=== PATIENT | female | born 1955 | race Caucasian/White ===

== ENCOUNTER 2019-11-10 22:34 | Inpatient (IN) | payer BC ==
[2019-11-11] MEDS ORDERED: IPRATROPIUM-ALBUTEROL 3 ML NEB INHALATION STA (00:02)
[2019-11-11] MEDS ORDERED: AZITHROMYCIN 500 MG in SODIUM CHLORIDE 0.9% 250 ML IVPB STA (00:07)
[2019-11-11] MEDS ORDERED: PNEUMONIA PROTOCOL UTILIZED 1 EACH MISC PO PRN (00:07)
--- NOTE | 2019-11-11 00:07 | ED ---
SOB HPI - General Chief Complaint: Shortness of Breath Stated Complaint: Pneumonia Time Seen by Provider: 11/10/19 22:34 Source: patient, RN/MD, EMS, RN notes reviewed Mode of arrival: EMS Limitations: no limitations - History of Present Illness Initial Comments: This is a 64-year-old female with no prior history of COPD asthma or smoking who presented to [facility] with complaints of shortness of breath cough upper respiratory symptoms she additionally has nausea vomiting some diarrhea. She also has sore throat. She was found have influenza type A and on further evaluation found have a right lower lobe and right middle lobe infiltrate consistent with pneumonia. She was noted to be hypoxemic was placed on oxygen he was sent here for further evaluation and inpatient treatment. She did develop epistaxis the right naris and was treated with a Rhino Rocket. Patient complains of pain upon arrival and has had no further bleeding. She did request the be removed. No other complaints or modifying factors she was found have a heart rate 112 a diminished blood pressure and scattered wheezing with a sodium 128 and lab work. Initial treatment was started at [facility] MD Complaint: shortness of breath, cough - Related Data Home Medications Medication Instructions Recorded Confirmed Calcium Polycarbophil [Fibercon] 1,250 mg PO DAILY PRN 11/10/19 11/10/19 Dulaglutide [Trulicity] 1.5 mg SQ MO 11/10/19 11/10/19 Glimepiride [Amaryl] 1 mg PO DAILY 11/10/19 11/10/19 Latanoprost [Xalatan 0.005%] 1 drop BOTH EYES HS 11/10/19 11/10/19 Levothyroxine Sodium [Synthroid] 50 mcg PO DAILY 11/10/19 11/10/19 Meloxicam [Mobic] 15 mg PO DAILY 11/10/19 11/10/19 metFORMIN HCL [Glucophage] 1,000 mg PO BID 11/10/19 11/10/19 Allergies Allergy/AdvReac Type Severity Reaction Status Date / Time fluoxetine [From Prozac] Allergy Anaphylaxis Verified 11/10/19 23:41 aspirin AdvReac Severe NOSE BLEEDS Verified 11/10/19 23:41 cortisone AdvReac COULDN'T Verified 11/10/19 23:41 WALK Ippuvqo-Nyd-Rsm Reductase AdvReac PANCREATITIS Verified 01/04/20 23:41 Inhibitor SYMPTOMS Review of Systems ROS Statement: Those systems with pertinent positive or pertinent negative responses have been documented in the HPI. ROS Other: All systems not noted in ROS Statement are negative. Past Medical History Past Medical History: Diabetes Mellitus, Fibromyalgia, Hyperlipidemia, Hypertension, Thyroid Disorder Additional Past Medical History / Comment(s): raynauds, vertigo History of Any Multi-Drug Resistant Organisms: None Reported Past Surgical History: Cholecystectomy Past Psychological History: No Psychological Hx Reported Smoking Status: Never smoker Past Alcohol Use History: Occasional Past Drug Use History: None Reported General Exam - General Exam Comments Initial Comments: This is a well-developed well-nourished awake alert oriented 3 female Limitations: no limitations General appearance: alert, anxious Head exam: Present: atraumatic, normocephalic, normal inspection Eye exam: Present: normal appearance, PERRL, EOMI. Absent: scleral icterus, conjunctival injection, periorbital swelling ENT exam: Present: normal exam, mucous membranes moist Neck exam: Present: normal inspection, full ROM, other (No stridor JVD or bruits). Absent: tenderness, meningismus, lymphadenopathy Respiratory exam: Present: wheezes (Scattered wheezes), decreased breath sounds. Absent: respiratory distress, rales, rhonchi, stridor Cardiovascular Exam: Present: normal rhythm, tachycardia, normal heart sounds. Absent: systolic murmur, diastolic murmur, rubs, gallop, clicks GI/Abdominal exam: Present: soft, normal bowel sounds. Absent: distended, tenderness, guarding, rebound, rigid Extremities exam: Present: normal inspection, full ROM, normal capillary refill. Absent: tenderness, pedal edema, joint swelling, calf tenderness Back exam: Present: normal inspection Neurological exam: Present: alert, oriented X3, CN II-XII intact Psychiatric exam: Present: normal affect, normal mood Skin exam: Present: warm, dry, intact, normal color. Absent: rash Course Vital Signs 11/10/19 11/10/19 11/10/19 22:46 22:54 23:30 Temperature 99.0 F Pulse Rate 106 H 100 Respiratory 20 20 Rate Blood Pressure 141/64 130/56 O2 Sat by Pulse 91 L 92 L Oximetry 11/11/19 00:00 Temperature Pulse Rate Respiratory Rate Blood Pressure O2 Sat by Pulse 87 L Oximetry Medical Decision Making - Medical Decision Making I did review the materials from the presenting hospital. I did discuss the case with Val Valle who is covering Dr. Pearson the patient be admitted for inpatient treatment of influenza and pneumonia. At this time her pulse ox was in the low 90s on room air so thus far nasal oxygen will be withheld as this likely precipitated the epistaxis. She is aware that she may need it she'll continue with IV fluids IV antibiotics and treatment for influenza Disposition Clinical Impression: Influenza A, Pneumonia, Dehydration, Febrile illness, acute, Acute bronchospasm Disposition: ADMITTED IP TO THIS HOSP Condition: Fair Referrals: Nonstaff,Physician [Primary Care Provider] - 1-2 days
[2019-11-11] MEDS ORDERED: IPRATROPIUM-ALBUTEROL 3 ML NEB INHALATION PRN (00:34)
[2019-11-11] MEDS ORDERED: IPRATROPIUM-ALBUTEROL 3 ML NEB INHALATION SCH (04:00)
[2019-11-11] MEDS ORDERED: methylPREDNISolone SOD SUCCI 125 MG/2 ML VIAL IV SCH (06:00)
[2019-11-11 07:14] LABS: Glucose,Whole Blood 202 mg/dL (75-99)
[2019-11-11] MEDS: metFORMIN 500 MG TAB PO SCH ×2 (07:36→21:12)
[2019-11-11] MEDS: LEVOTHYROXINE 50 MCG TAB PO SCH (07:37)
[2019-11-11] MEDS: INSULIN ASPART (NovoLOG) 100 UNIT/ML VIAL SQ SCH ×4 (07:37→21:12)
[2019-11-11] MEDS: GLIMEPIRIDE 1 MG TAB PO SCH (07:37)
[2019-11-11] MEDS ORDERED: MELOXICAM 7.5 MG TAB PO SCH (09:00)
[2019-11-11] MEDS: IPRATROPIUM-ALBUTEROL 3 ML NEB INHALATION SCH ×4 (09:46→19:21)
[2019-11-11 11:32] LABS: Glucose,Whole Blood 298 mg/dL (75-99)
--- NOTE | 2019-11-11 12:05 | CONS ---
CONSULTATION DATE OF CONSULTATION: November 11, 2019 This is a 64-year-old female with no prior history of any lung issues. The patient presented to [facility] with complaints of shortness of breath, cough, chest tightness, wheezing, as well as a fever, chills and muscle aches and joint aches. She apparently was found to be positive for influenza A and on chest x-ray apparently was positive for right lower lobe and right middle lobe pneumonia. Unfortunately, that chest x-ray is not available. A chest x-ray will be ordered on this patient. She is feeling a bit better today. She states her chest feels a bit looser and she is not feeling so tight and short of breath. She is coughing. Producing some phlegm. Today, there is no fever or chills. The patient was seen in our ER by Dr. Daily and admitted to the hospital with pneumonia involving the right middle lobe, right lower lobe, as well as influenza A infection. She sees a nurse practitioner in [place]. Her current home medications include FiberCon, Trulicity, Amaryl, Xalatan eye drops, Synthroid, Mobic, and Glucophage. ALLERGIES: INCLUDE PROZAC, ASPIRIN, CORTISONE, AND STATINS. MEDICAL HISTORY: Diabetes mellitus, fibromyalgia, hyperlipidemia, hypothyroidism. She also suffers from Raynaud disease and vertigo. SURGICAL HISTORY: Only includes a cholecystectomy. SOCIAL HISTORY: Significant that she is a lifelong nonsmoker. She drinks occasionally. No illicit drug use. FAMILY HISTORY: Noncontributory. Mother and father were healthy. REVIEW OF SYSTEMS: CONSTITUTIONAL: Weakness, fatigue, muscle aches, joint aches. NEUROLOGIC negative. HEENT negative. CARDIOVASCULAR negative. PULMONARY: Shortness of breath, chest congestion, cough, wheezing, chest tightness, and phlegm production. GI negative. negative. RHEUMATOLOGIC: Muscle aches. IMMUNOLOGIC negative. DERMATOLOGIC negative. RHEUMATOLOGIC negative. PHYSICAL EXAMINATION: VITAL SIGNS: Current vital signs are reviewed. Her temperature is 98.2, T-max of 99.7. Heart rate 103, respiratory rate 18, blood pressure 168/65, 2 L saturation 93%. GENERAL: Appears in no acute distress. Not wearing any supplemental oxygen. She appears to not have any respiratory difficulty. There is no audible wheezing, use of accessory muscles or conversational dyspnea. HEENT examination is grossly unremarkable. Mucous membranes are moist. NECK: Supple. Full range of motion. No adenopathy or thyromegaly. Neck veins are flat. CARDIOVASCULAR: Examination reveals mild tachycardia. Sinus tachycardia. It is regular. S1, S2 normal. LUNGS: Reveal coarse rhonchi throughout. There are some mild expiratory wheezes. No crackles. Breath sounds equal. ABDOMEN: Soft. Bowel sounds are heard. EXTREMITIES are intact. No cyanosis, clubbing, or edema. SKIN: Without rash. NEUROLOGIC: Examination is brief but nonfocal. LAB DATA: Reviewed. The only thing currently here is a blood sugar. Microbiology is pending or negative. Medications are reviewed. She is on Zithromax, Rocephin Amaryl, insulin, updrafts with albuterol and Atrovent, eye drops, levothyroxine, metformin, and Solu-Medrol. ASSESSMENT: 1. History of influenza A infection complicated by right middle lobe and right lower lobe pneumonia. 2. No history of intrinsic pulmonary disease, lifelong nonsmoker. 3. History of diabetes mellitus. 4. History of fibromyalgia. 5. History of hyperlipidemia. 6. History of hypertension. 7. Hypothyroidism. 8. Raynaud's disease. 9. History of vertigo. PLAN: Medications are appropriate. We will continue to follow. We will decrease the dose of steroids. We did order chest x-ray. Additional recommendations and suggestions are forthcoming. Prognosis is generally thought to be good. MMTAPANL / LEAHN: [id number] /
--- NOTE | 2019-11-11 13:35 | XR ---
EXAMINATION TYPE: XR chest 1V portable DATE OF EXAM: 11/11/2019 Comparison: 11/10/2019 Clinical History: 64-year-old female pneumonia Findings: Heart normal size. Aorta and pulmonary vasculature within normal limits. Redemonstrated patchy airspa ce disease in the right lower lung, probably the middle lobe. No pleural effusion. Impression: Right middle lobe pneumonia, similar to the outside 11/10/2019 exam.
[2019-11-11] MEDS ORDERED: HYDROcodone/APAP 5-325MG 1 EACH TAB PO PRN (15:26)
[2019-11-11] MEDS ORDERED: CALCIUM POLYCARBOPHIL 625 MG TAB PO PRN (15:26)
[2019-11-11] MEDS ORDERED: ALPRAZolam 0.25 MG TAB PO PRN (15:26)
[2019-11-11] MEDS ORDERED: TEMAZEPAM 15 MG CAP PO PRN (15:26)
[2019-11-11 17:05] LABS: Glucose,Whole Blood 329 mg/dL (75-99)
--- NOTE | 2019-11-11 17:23 | HP ---
HISTORY AND PHYSICAL DATE OF SERVICE: 11/11/2019. CHIEF COMPLAINT: Shortness of breath with cough and pneumonia. HISTORY OF PRESENT ILLNESS: This 64-year-old woman with a past medical history of multiple medical problems including history of diabetes, hypertension, hyperlipidemia, history of hypothyroidism, history of Raynaud phenomenon, vertigo, being followed by primary physician, in the [place] area, was not feeling well over the past 4-5 days. The patient had increasing cough and sputum and also sore throat also. The patient was found to have influenza A and further evaluation showed evidence of pneumonia which was confirmed on the chest x-ray which I reviewed personally. The chest x-ray, PA view done in the hospital showed right middle lobe pneumonia and the patient was admitted for further evaluation and treatment. Dr. Stover's evaluation in progress. There is no history of fever, rigors or chills. No history of headache, loss of consciousness, seizures. PAST MEDICAL HISTORY: Diabetes, fibromyalgia, hyperlipidemia, hypertension. MEDICATIONS: Home medications are: 1. Metformin 1000 mg p.o. b.i.d. 2. Mobic 15 mg p.o. daily. 3. Synthroid 50 mcg p.o. daily. 4. Xalatan 0.05% 1 drop both eyes q.h.s. 5. Amaryl 1 mg p.o. daily. 6. Trulicity 1.5 mg subcu Tuesday. 7. FiberCon 1.25 mg daily p.r.n. ALLERGIES: CORTISOL, STATINS. FAMILY HISTORY: No history of heart disease or strokes in the family. SOCIAL HISTORY: No history of smoking. No history of alcohol. REVIEW OF SYSTEMS: ENT: No diminished vision. No diminished hearing. CARDIOVASCULAR system: As mentioned earlier. GI no nausea or vomiting. no dysuria. CENTRAL NERVOUS SYSTEM: No numbness or weakness. ALLERGY/IMMUNOLOGY: No asthma or hayfever. MUSCULOSKELETAL: As mentioned earlier. HEMATOLOGY/ONCOLOGY: No history of anemia. ENDOCRINE: Hypothyroidism and diabetes. CONSTITUTIONAL: As mentioned earlier. DERMATOLOGY: Negative. RHEUMATOLOGY: Negative. PSYCHIATRIC: As mentioned earlier. PHYSICAL EXAMINATION: The patient is alert and oriented times three. Pulse 89, blood pressure 130/65, respirations 16, temperature 97.6, pulse ox 93 percent on 2 L. HEENT is conjunctivae normal. NECK: No JVD. CARDIOVASCULAR; S1, S2 muffled. RESPIRATORY SYSTEM: Breath sounds diminished at the bases. Bilateral scattered rhonchi and crackles. ABDOMEN: Soft, obese, nontender. No mass palpable. LEGS: No edema. No swelling. NERVOUS SYSTEM: Higher functions as mentioned earlier. Moves all four limbs. No focal motor or sensory deficits. LYMPHATICS: No lymph nodes palpable in the neck, axillae or groin. SKIN: No ulcer, no rash and no bleeding. JOINTS: No active deforming arthropathy. LABS: Glucose 202 and 292. ASSESSMENT: 1. Acute right middle lobe pneumonia, possibly gram-positive Staph pneumonia secondary to influenza. 2. Acute bronchospasm with acute bronchitis with acute hypoxic respiratory failure, present on admission. 3. Diabetes mellitus type 2, uncontrolled with hyperglycemia. 4. Fibromyalgia. 5. Hypertension. 6. Hyperlipidemia. 7. Hypothyroidism. 8. History of Raynaud's. 9. History of vertigo. 10.Cholecystectomy. RECOMMENDATIONS AND DISCUSSION: In this 64-year-old woman who presented with multiple complex medical issues, we will monitor the patient closely, continue the current medications, symptomatic treatment. Otherwise, at this time, continue the bronchodilators, optimize bronchodilator treatment, empiric antibiotics, antivirals. Guarded prognosis because of multiple complex medical issues. Further recommendations to follow. See orders for details. Short course of IV steroids. Closely follow with Dr. Stover. CALLIE / DONNA: [id number] / JIMMY
[2019-11-11] MEDS: OSELTAMIVIR 75 MG CAP PO SCH (17:32)
[2019-11-11] MEDS: methylPREDNISolone SOD SUCCI 40 MG/ML 1 ML VIAL IV SCH ×2 (17:33→23:32)
[2019-11-11 20:49] LABS: Glucose,Whole Blood 398 mg/dL (75-99)
[2019-11-11] MEDS: HEPARIN SODIUM,PORCINE 5,000 UNIT/ML 1 ML VIAL SQ SCH (21:10)
[2019-11-11] MEDS: LATANOPROST 0.005% OPHTH DROPS 2.5 ML BTL BOTH EYES SCH (21:22)
[2019-11-11] MEDS: AZITHROMYCIN 500 MG TAB PO SCH (23:33)
[2019-11-12] MEDS: LEVOTHYROXINE 50 MCG TAB PO SCH (05:34)
[2019-11-12 06:27] LABS: African American GFR (CKD) >90 (>60 ml/min/1.73 sqM); Anion Gap 9 mmol/L; Blood Urea Nitrogen 17 mg/dL (7-17); Calcium 9.6 mg/dL (8.4-10.2); Carbon Dioxide 26 mmol/L (22-30); Chloride 103 mmol/L (98-107); Glucose 337 mg/dL (74-99); Non-African American GFR(CKD) 87 (>60 ml/min/1.73 sqM); Potassium 4.3 mmol/L (3.5-5.1); Sodium 138 mmol/L (137-145)
[2019-11-12 06:28] LABS: Basophils % (A) 0 %; Eosinophils % (A) 0 %; HGB 11.4 gm/dL (11.4-16.0); Lymphocytes % (A) 13 %; MCH 28.7 pg (25.0-35.0); MCHC 32.6 g/dL (31.0-37.0); MCV 88.1 fL (80.0-100.0); Monocytes # (A) 0.4 k/uL (0-1.0); Monocytes % (A) 5 %; Neutrophils % (A) 79 %; Platelet Count 261 k/uL (150-450); RBC 3.98 m/uL (3.80-5.40); RDW 12.4 % (11.5-15.5); WBC 7.5 k/uL (3.8-10.6)
[2019-11-12 07:04] LABS: Glucose,Whole Blood 338 mg/dL (75-99)
[2019-11-12] MEDS: GLIMEPIRIDE 1 MG TAB PO SCH (08:09)
[2019-11-12] MEDS: methylPREDNISolone SOD SUCCI 40 MG/ML 1 ML VIAL IV SCH ×3 (08:09→23:25)
[2019-11-12] MEDS: PANTOPRAZOLE 40 MG TABLET PO SCH (08:09)
[2019-11-12] MEDS: metFORMIN 500 MG TAB PO SCH ×2 (08:09→21:49)
[2019-11-12] MEDS: OSELTAMIVIR 75 MG CAP PO SCH ×2 (08:09→21:49)
[2019-11-12] MEDS: HEPARIN SODIUM,PORCINE 5,000 UNIT/ML 1 ML VIAL SQ SCH ×2 (08:10→21:49)
[2019-11-12] MEDS: INSULIN ASPART (NovoLOG) 100 UNIT/ML VIAL SQ SCH ×3 (08:10→17:38)
[2019-11-12] MEDS: IPRATROPIUM-ALBUTEROL 3 ML NEB INHALATION SCH ×4 (08:23→20:01)
[2019-11-12 12:31] LABS: Glucose,Whole Blood 406 mg/dL (75-99)
[2019-11-12] MEDS: MULTIVITAMINS, THERA 1 EACH TAB PO SCH (13:27)
[2019-11-12] MEDS ORDERED: INSULIN REGULAR BOLUS (FROM DRIP BAG) IV ONE (13:35)
[2019-11-12] MEDS: INSULIN REGULAR 100 UNIT in SODIUM CHLORIDE 0.9% 100 ML IV SCH ×2 (14:15→23:38)
[2019-11-12 15:12] LABS: Glucose,Whole Blood 356 mg/dL (75-99)
[2019-11-12] MEDS ORDERED: NON FORMULARY DRUG (Dulaglutide [Trulicity] 1.5 MG) SQ SCH (15:26)
[2019-11-12 15:36] LABS: Glucose,Whole Blood 322 mg/dL (75-99)
[2019-11-12 16:31] LABS: Glucose,Whole Blood 288 mg/dL (75-99)
--- NOTE | 2019-11-12 17:04 | P.PN ---
Subjective Progress Note Date: 11/12/19 64-year-old female patient was transferred from [place] because of pneumonia. She was apparently found to have influenza a the chest x-ray shows a right lower lobe pneumonia. The patient was seen in consultation yesterday by my partner. He has history of diabetes mellitus and hypothyroidism and fi bromyalgia and hypertension and she suffers from Raynaud's disease. For now, the patient is on a combination of Rocephin and Zithromax and the patient is also on Tamiflu orally. She is also on DuoNeb nebulized treatments around the clock. Clinically she is getting the same. She remains bronchus spastic and wheezy somewhat unchanged compared to yesterday. Blood sugars are slightly elevated today to use of systemic steroids. No chest pain. No history of bronchial asthma. Most of COPD. 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 appearance, comfortable likely distress Head exam was generally normal. There was no scleral icterus or corneal arcus. Mucous membranes were moist. Neck was supple and without jugular venous distension, thyromegaly, or carotid bruits. Carotids were easily palpable bilaterally. There was no adenopathy. Lungs sounds are diminished and there is some prolongation of the exhalation phase of breathing and scattered expiratory wheezes throughout the lung soriano bilaterally. Cardiac exam revealed the PMI to be normally situated and sized. The rhythm was regular and no extrasystoles were noted during several minutes of auscultation. The first and second heart sounds were normal and physiologic splitting of the second heart sound was noted. There were no murmurs, rubs, clicks, or gallops. Abdominal exam revealed normal bowel sounds. The abdomen was soft, non-tender, and without masses, organomegaly, or appreciable enlargement of the abdominal aorta. Examination of the extremities revealed easily palpable radial, femoral and pedal pulses. There was no cyanosis, clubbing or edema. Examination of the skin revealed no evidence of significant rashes, suspicious appearing nevi or other concerning lesions. Neurologically the patient is awake and alert and there is no focal neurological deficit. - Labs CBC & Chem 7: 11/12/19 05:59 11/12/19 05:59 Labs: Abnormal Lab Results - Last 24 Hours (Table) 11/11/19 11/11/19 11/12/19 Range/Units 17:02 20:22 05:59 Glucose 337 H (74-99) mg/dL POC Glucose (mg/dL) 329 H 398 H (75-99) mg/dL 11/12/19 11/12/19 11/12/19 Range/Units 07:00 12:13 15:10 Glucose (74-99) mg/dL POC Glucose (mg/dL) 338 H 406 H 356 H (75-99) mg/dL 11/12/19 11/12/19 Range/Units 15:35 16:27 Glucose (74-99) mg/dL POC Glucose (mg/dL) 322 H 288 H (75-99) mg/dL Microbiology - Last 24 Hours (Table) 11/11/19 00:50 Blood Culture - Preliminary Blood No Growth after 24 hours Assessment and Plan Plan: 1 acute pneumonia secondary influenza A. The patient presents with a right middle lobe/right lower lobe pneumonia 2 acute hypoxic respiratory failure secondary to above is improved, nevertheless the patient is still having some limited bronchospasm wheezing 3 Hypertension 4 hyperlipidemia 5 hypothyroidism 6 Raynaud's disease Plan Continue current antibiotic coverage. Solu-Medrol has been tapered to 40 mg every 8 hours Monitor the blood sugar and treat accordingly Repeat chest x-ray in the morning We'll continue to follow
[2019-11-12 17:31] LABS: Glucose,Whole Blood 235 mg/dL (75-99)
--- NOTE | 2019-11-12 18:03 | PN ---
PROGRESS NOTE DATE OF SERVICE: 11/12/2019 This 64-year-old woman who was admitted with significant respiratory failure, also had bronchospasm, acute hypoxic respiratory failure, also had bilateral pneumonia, multilobar pneumonia, possibly secondary to influenza and Staph. The patient on broad IV antibiotics. The patient is still having shortness of breath. The patient being closely monitored at this time. PAST MEDICAL HISTORY: Reviewed. REVIEW OF SYSTEMS: CARDIOVASCULAR SYSTEM: No angina or palpitations. RESPIRATION as mentioned earlier. GASTROINTESTINAL: As mentioned earlier. : No dysuria or retention. CENTRAL NERVOUS SYSTEM: No numbness or weakness. CURRENT MEDICATIONS: Reviewed and include: 1. Amasa q.6h p.r.n. 2. DuoNeb q.i.d. and p.r.n. 3. Xanax 0.5 t.i.d. 4. Zithromax. 5. FiberCon. 6. Rocephin. 7. Heparin. 8. NovoLog. 9. Xalatan. 10.Synthroid. 11.Glucophage. 12.Solu-Medrol. 13.Multivitamins. 14.Tamiflu. 15.Protonix. 16.Restoril. 17.Doses reviewed. PHYSICAL EXAMINATION: The patient is alert and oriented x3. Pulse 98. Blood pressure 147/76, respiration 20, temperature 97.8, pulse ox 88 percent on room air. HEENT: Conjunctivae normal. NECK: No JVD. CARDIOVASCULAR SYSTEM: S1, S2 muffled. RESPIRATORY SYSTEM: Breath sounds diminished at the bases. Bilateral scattered rhonchi and crackles. Expiratory wheezing also present. ABDOMEN: Soft, nontender, obese. LEGS: No edema. No swelling. CENTRAL NERVOUS SYSTEM: No focal deficits. LAB STUDIES: CBC within normal limits. BMP noted. Accu-Cheks 398, 337, 313 and 406. ASSESSMENT: 1. Acute right middle lobe pneumonia possibly gram positive with Staph pneumonia or secondary to influenza. 2. Acute bronchospasm with acute bronchitis with acute hypoxic respiratory failure, present on admission. 3. Diabetes type 2, uncontrolled with hyperglycemia with sugars more than 400. 4. Fibromyalgia. 5. Hypertension. 6. Hyperlipidemia. 7. Hypothyroidism. 8. History of Raynaud's. 9. History of vertigo. 10.Cholecystectomy. 11.FULL CODE. RECOMMENDATIONS AND DISCUSSION: In this 64-year-old woman who presented with multiple complex medical issues, at this time, I recommend to continue current medications, management and symptomatic treatment. Continue the bronchodilators, antibiotics, antivirals, and also empiric steroids. Monitor blood sugars closely. Sugars are extremely elevated at this time. I recommend insulin drip for steroids at this time and IV and monitor the patient closely. Guarded prognosis because of multiple complex medical issues. Further recommendations to follow. Follow with Pulmonary. See orders for details. Discussed with the patient at length. MMODL / IJN: [id number] /
[2019-11-12 19:42] LABS: Glucose,Whole Blood 275 mg/dL (75-99)
[2019-11-12 21:49] LABS: Glucose,Whole Blood 299 mg/dL (75-99)
[2019-11-12] MEDS: LATANOPROST 0.005% OPHTH DROPS 2.5 ML BTL BOTH EYES SCH (21:49)
[2019-11-12] MEDS: AZITHROMYCIN 500 MG TAB PO SCH (23:25)
[2019-11-12 23:47] LABS: Glucose,Whole Blood 291 mg/dL (75-99)
[2019-11-13 01:44] LABS: Glucose,Whole Blood 210 mg/dL (75-99)
[2019-11-13 03:37] LABS: Glucose,Whole Blood 201 mg/dL (75-99)
[2019-11-13 05:33] LABS: Glucose,Whole Blood 200 mg/dL (75-99)
[2019-11-13] MEDS: LEVOTHYROXINE 50 MCG TAB PO SCH (05:33)
[2019-11-13 07:32] LABS: Glucose,Whole Blood 215 mg/dL (75-99)
[2019-11-13] MEDS: INSULIN ASPART (NovoLOG) 100 UNIT/ML VIAL SQ SCH ×5 (07:49→22:04)
[2019-11-13] MEDS: methylPREDNISolone SOD SUCCI 40 MG/ML 1 ML VIAL IV SCH ×2 (07:49→22:03)
[2019-11-13] MEDS: metFORMIN 500 MG TAB PO SCH ×2 (07:50→22:02)
[2019-11-13] MEDS: HEPARIN SODIUM,PORCINE 5,000 UNIT/ML 1 ML VIAL SQ SCH ×2 (07:50→22:04)
[2019-11-13] MEDS: PANTOPRAZOLE 40 MG TABLET PO SCH (07:50)
[2019-11-13] MEDS: OSELTAMIVIR 75 MG CAP PO SCH ×2 (07:50→22:03)
[2019-11-13] MEDS: GLIMEPIRIDE 1 MG TAB PO SCH (07:54)
[2019-11-13 09:36] LABS: Glucose,Whole Blood 228 mg/dL (75-99)
[2019-11-13 09:54] LABS: Basophils # (A) 0.2 k/uL (0-0.2); Basophils % (A) 2 %; Eosinophils % (A) 0 %; HGB 11.8 gm/dL (11.4-16.0); Lymphocytes # (A) 1.2 k/uL (1.0-4.8); Lymphocytes % (A) 10 %; MCH 29.5 pg (25.0-35.0); MCHC 32.9 g/dL (31.0-37.0); MCV 89.8 fL (80.0-100.0); Mean Platelet Volume 7.8; Monocytes # (A) 0.5 k/uL (0-1.0); Monocytes % (A) 4 %; Neutrophils # (A) 9.7 k/uL (1.3-7.7); Neutrophils % (A) 82 %; Platelet Count 337 k/uL (150-450); RBC 4.01 m/uL (3.80-5.40); RDW 12.6 % (11.5-15.5); WBC 11.8 k/uL (3.8-10.6)
[2019-11-13 10:10] LABS: African American GFR (CKD) >90 (>60 ml/min/1.73 sqM); Anion Gap 11 mmol/L; Blood Urea Nitrogen 19 mg/dL (7-17); Calcium 9.6 mg/dL (8.4-10.2); Carbon Dioxide 25 mmol/L (22-30); Chloride 102 mmol/L (98-107); Glucose 233 mg/dL (74-99); Non-African American GFR(CKD) 85 (>60 ml/min/1.73 sqM); Potassium 4.3 mmol/L (3.5-5.1); Sodium 138 mmol/L (137-145)
[2019-11-13] MEDS: IPRATROPIUM-ALBUTEROL 3 ML NEB INHALATION SCH ×4 (10:54→20:44)
[2019-11-13 11:38] LABS: Glucose,Whole Blood 120 mg/dL (75-99)
--- NOTE | 2019-11-13 11:40 | P.PN ---
Subjective Progress Note Date: 11/13/19 Principal diagnosis: Acute pneumonia secondary to influenza A. Right middle lobe/right lower lobe pneumonia The patient is seen today in 11/13/20192017 in follow-up on the regular medical floor. She is currently resting quite comfortably in bed. Feeling better each day. Up to the shower. She still has a loose nonproductive cough. She's afebrile. Maintaining O2 saturations 97% on room air. Hemodynamically stable. Blood culture reveals no growth. White count 11.8. Hemoglobin 11.8. Creatinine 0.75. He is continued on DuoNeb inhalations, ceftriaxone and azithromycin, IV Solu-Medrol and Tamiflu. She is requiring an insulin drip at 5 units per hour. Follow-up chest x-ray pending. Objective - Vital Signs Vital signs: Vital Signs Temp 98 F 11/13/19 05:00 Pulse 73 11/13/19 05:00 Resp 20 11/13/19 05:00 BP 135/69 11/13/19 05:00 Pulse Ox 97 11/13/19 05:00 Intake & Output 11/12/19 11/13/19 11/13/19 18:59 06:59 18:59 Intake Total 67.033 364.184 15.533 Balance 67.033 364.184 15.533 Intake: Intake, IV Titration 67.033 64.184 15.533 Amount Insulin Regular 100 unit 67.033 64.184 15.533 In Sodium Chloride 0.9% 100 ml @ Titrate IV .Q0M [facility] Rx#:[id number] Oral 300 Other: # Voids 4 1 - Exam GENERAL EXAM: Alert, active, alert 64-year-old female patient, on room air, co mfortable in no apparent distress. HEAD: Normocephalic. EYES: Normal reaction of pupils, equal size. NOSE: Clear with pink turbinates. THROAT: No erythema or exudates. NECK: No masses, no JVD. CHEST: No chest wall deformity. LUNGS: Equal air entry with few scattered rhonchi more so on the right lung, end expiratory wheeze. CVS: S1 and S2 normal with no audible murmur, regular rhythm. ABDOMEN: No hepatosplenomegaly, normal bowel sounds, no guarding or rigidity. SPINE: No scoliosis or deformity SKIN: No rashes CENTRAL NERVOUS SYSTEM: No focal deficits, tone is normal in all 4 extremities. EXTREMITIES: There is no peripheral edema. No clubbing, no cyanosis. Peripheral pulses are intact. - Labs CBC & Chem 7: 11/13/19 09:27 11/13/19 09:27 Labs: Abnormal Lab Results - Last 24 Hours (Table) 11/12/19 11/12/19 11/12/19 Range/Units 12:13 15:10 15:35 WBC (3.8-10.6) k/uL Neutrophils # (1.3-7.7) k/uL BUN (7-17) mg/dL Glucose (74-99) mg/dL POC Glucose (mg/dL) 406 H 356 H 322 H (75-99) mg/dL 11/12/19 11/12/19 11/12/19 Range/Units 16:27 17:28 19:36 WBC (3.8-10.6) k/uL Neutrophils # (1.3-7.7) k/uL BUN (7-17) mg/dL Glucose (74-99) mg/dL POC Glucose (mg/dL) 288 H 235 H 275 H (75-99) mg/dL 11/12/19 11/12/19 11/13/19 Range/Units 21:47 23:46 01:35 WBC (3.8-10.6) k/uL Neutrophils # (1.3-7.7) k/uL BUN (7-17) mg/dL Glucose (74-99) mg/dL POC Glucose (mg/dL) 299 H 291 H 210 H (75-99) mg/dL 11/13/19 11/13/19 11/13/19 Range/Units 03:34 05:32 07:27 WBC (3.8-10.6) k/uL Neutrophils # (1.3-7.7) k/uL BUN (7-17) mg/dL Glucose (74-99) mg/dL POC Glucose (mg/dL) 201 H 200 H 215 H (75-99) mg/dL 11/13/19 11/13/19 11/13/19 Range/Units 09:27 09:27 09:35 WBC 11.8 H (3.8-10.6) k/uL Neutrophils # 9.7 H (1.3-7.7) k/uL BUN 19 H (7-17) mg/dL Glucose 233 H (74-99) mg/dL POC Glucose (mg/dL) 228 H (75-99) mg/dL Microbiology - Last 24 Hours (Table) 11/11/19 00:50 Blood Culture - Preliminary Blood No Growth after 48 hours Assessment and Plan Assessment: 1 acute pneumonia secondary influenza A. The patient presents with a right middle lobe/right lower lobe pneumonia 2 acute hypoxic respiratory failure secondary to above is improved, nevertheless the patient is still having some limited bronchospasm wheezing 3 Hypertension 4 hyperlipidemia 5 hypothyroidism 6 Raynaud's disease Plan The patient was seen and evaluated by Dr. Buckley. She is improved today compared to yesterday. Not quite back to her baseline. Follow-up chest x-ray pending. We'll taper the Solu-Medrol down further as the patient is requiring insulin drip for her blood glucose levels. Increase activity as tolerated. We'll continue to follow. I, the cosigning physician, performed a history & physical examination of the patient. Lungs sounds few scattered rhonchi more so on the right lung, end expiratory wheeze. Maintaining good O2 saturations in the 90s on room air. I discussed the assessment and plan of care with my nurse practitioner, Kacie Jin. I attest to the above note as dictated by her.
[2019-11-13] MEDS: MULTIVITAMINS, THERA 1 EACH TAB PO SCH (12:35)
[2019-11-13 13:30] LABS: Glucose,Whole Blood 137 mg/dL (75-99)
--- NOTE | 2019-11-13 15:41 | XR ---
EXAMINATION TYPE: XR chest 1V portable DATE OF EXAM: 11/13/2019 COMPARISON: 11/11/2019 HISTORY: Right middle lobe/right lower lobe pneumonia. Follow-up exam. TECHNIQUE: Single frontal view of the chest is obtained. FINDINGS: Nearly resolved right lung opacities. Platelike left basilar atelectasis. No pneumothorax o r pleural effusion. The cardiac silhouette size is within normal limits. Overall feels a right later al rib fracture is seen. IMPRESSION: Nearly resolved right basilar opacity. New platelike left basilar atelectasis.
[2019-11-13 17:01] LABS: Glucose,Whole Blood 272 mg/dL (75-99)
--- NOTE | 2019-11-13 19:27 | PN ---
PROGRESS NOTE DATE OF SERVICE: 11/13/2019 This 64-year-old woman who was admitted with significant influenza also had significant shortness of breath. The patient has significant bronchospasm and some right middle lobe pneumonia suspected. Patient on broad IV antibiotics. Cultures are negative today. Pulmonary following the patient closely. Repeat chest x-ray which was done today which was reviewed personally by me showed persistent evidence of right middle lobe haziness. Patient is being closely monitored. PAST MEDICAL HISTORY: Reviewed. REVIEW OF SYSTEMS: CARDIOVASCULAR SYSTEM: No angina. RESPIRATORY: As mentioned earlier. GI: As mentioned earlier. : No dysuria. NEUROLOGIC SYSTEM: No numbness or weakness. CURRENT MEDICATIONS: 1. B[place]our 5 mg p.r.n. 2. DuoNeb q.i.d. and p.r.n. 3. Xanax 0.5 t.i.d. 4. Zithromax 500 mg daily. 5. FiberCon. 6. Rocephin 1 g p.o. daily. 7. Amaryl. 8. Heparin subcu b.i.d. 9. NovoLog scale. 10.Xalatan. 11.Synthroid. 12.Glucophage. 13.Solu-Medrol 40 IV b.i.d. 14.Multivitamins. 15.Tamiflu. 16.Protonix. 17.Restoril. PHYSICAL EXAM: Patient is alert, oriented x3. Pulse blood 74, blood pressure 130/69, respiration 20, temperature 98.9, pulse ox 97% on room air. HEENT: Conjunctivae normal. Oral mucosa moist. NECK: No jugular venous distention. No lymph node enlargement. CARDIOVASCULAR: S1, S2. RESPIRATORY: Diminished breath sounds at the bases. Bilateral scattered rhonchi and crackles. ABDOMEN: Soft, nontender. LEGS: No edema, no swelling. NERVOUS SYSTEM: No focal deficits. LAB STUDIES: WBC 11.2, hemoglobin 7.8. Glucose noted. ASSESSMENT: 1. Acute right middle lobe pneumonia, possibly gram-negative with Staph pneumonia or secondary to influenza. 2. Acute bronchospasm with acute bronchitis with severe acute hypoxic respiratory failure, present on admission. 3. Diabetes mellitus type 2, uncontrolled with hyperglycemia, sugars more than 400. 4. Fibromyalgia. 5. Hypertension. 6. Hyperlipidemia. 7. History of Raynaud's. 8. History of vertigo. 9. Cholecystectomy. 10.FULL CODE. RECOMMENDATIONS AND DISCUSSION: Recommend to continue current medications, continue symptomatic treatment, continue with bronchodilators, continue with steroids, continue to monitor blood sugars closely. Will continue to monitor continue the rest of medications. Otherwise, empiric antibiotics. Cultures are negative so far. Guarded prognosis because of multiple complex medical issues. Further recommendations to follow. See orders for details. Discussed with the family at length. CALLIE / IJN: [id number] /
[2019-11-13 20:42] LABS: Glucose,Whole Blood 152 mg/dL (75-99)
[2019-11-13] MEDS: LATANOPROST 0.005% OPHTH DROPS 2.5 ML BTL BOTH EYES SCH (22:11)
[2019-11-14] MEDS: AZITHROMYCIN 500 MG TAB PO SCH (00:51)
[2019-11-14] MEDS: LEVOTHYROXINE 50 MCG TAB PO SCH (06:30)
[2019-11-14 07:15] LABS: Glucose,Whole Blood 323 mg/dL (75-99)
[2019-11-14] MEDS: OSELTAMIVIR 75 MG CAP PO SCH ×2 (08:06→20:57)
[2019-11-14] MEDS: PANTOPRAZOLE 40 MG TABLET PO SCH (08:06)
[2019-11-14] MEDS: MULTIVITAMINS, THERA 1 EACH TAB PO SCH (08:06)
[2019-11-14] MEDS: metFORMIN 500 MG TAB PO SCH ×2 (08:07→20:57)
[2019-11-14] MEDS: INSULIN ASPART (NovoLOG) 100 UNIT/ML VIAL SQ SCH ×7 (08:07→21:06)
[2019-11-14] MEDS: methylPREDNISolone SOD SUCCI 40 MG/ML 1 ML VIAL IV SCH ×2 (08:07→20:58)
[2019-11-14] MEDS: GLIMEPIRIDE 1 MG TAB PO SCH (08:07)
[2019-11-14] MEDS: HEPARIN SODIUM,PORCINE 5,000 UNIT/ML 1 ML VIAL SQ SCH ×2 (08:08→20:58)
[2019-11-14 08:18] LABS: Calcium 8.9 mg/dL (8.4-10.2); Potassium 4.9 mmol/L (3.5-5.1)
[2019-11-14 08:43] LABS: HCT 35.5 % (34.0-46.0); HGB 11.4 gm/dL (11.4-16.0); MCH 28.9 pg (25.0-35.0); MCHC 32.2 g/dL (31.0-37.0); MCV 89.9 fL (80.0-100.0); Mean Platelet Volume 8.6; Platelet Count 379 k/uL (150-450); RBC 3.96 m/uL (3.80-5.40); RDW 12.8 % (11.5-15.5)
[2019-11-14] MEDS: IPRATROPIUM-ALBUTEROL 3 ML NEB INHALATION SCH ×4 (09:12→19:39)
[2019-11-14 11:50] LABS: Band Neutrophils % 8 %; Metamyelocytes % 7 %; Myelocytes % 1 %; Neutrophils % (M) 68 %; Nucleated Red Blood Cells 0 /100 WBC (0-0); Total Cells Counted 200
[2019-11-14 11:54] LABS: Glucose,Whole Blood 247 mg/dL (75-99)
--- NOTE | 2019-11-14 12:39 | P.PN ---
Subjective Progress Note Date: 11/14/19 Principal diagnosis: Acute pneumonia secondary to influenza A. Right middle lobe/right lower lobe pneumonia The patient is seen today in 11/13/2019 2018 in follow-up on the regular medical floor. She is currently resting quite comfortably in bed. Feeling better each day. Up to the shower. She still has a loose nonproductive cough. She's afebrile. Maintaining O2 saturations 97% on room air. Hemodynamically stable. Blood culture reveals no growth. White count 11.8. Hemoglobin 11.8. Creatinine 0.75. He is continued on DuoNeb inhalations, ceftriaxone and azithromycin, IV Solu-Medrol and Tamiflu. She is requiring an insulin drip at 5 units per hour. Follow-up chest x-ray pending. The patient is seen today 11/14/2019 in follow-up on the regular medical floor. She is awake and alert in no acute distress. She's been up ambulating in her room. She still has some dyspnea on exertion. Still loose nonproductive cough today. Some wheezing. She is maintaining good O2 saturations on room air. She's been afebrile. Blood culture reveals no growth to date. White count 10.0. Hemoglobin 11.4. Sodium 135. Potassium 4.9. Creatinine 0.82. Chest x- ray shows near complete resolution of the right basilar opacity. Some new platelike atelectasis in the left base. Objective - Vital Signs Vital signs: Vital Signs Temp 97.6 F 11/14/19 04:30 Pulse 89 11/14/19 12:21 Resp 20 11/14/19 08:00 BP 145/85 11/14/19 04:30 Pulse Ox 96 11/14/19 04:30 Intake & Output 11/13/19 11/14/19 11/14/19 18:59 06:59 18:59 Intake Total 825.533 600 Balance 825.533 600 Intake: Intake, IV Titration 25.533 Amount Insulin Regular 100 unit 25.533 In Sodium Chloride 0.9% 100 ml @ Titrate IV .Q0M [facility] Rx#:[id number] Oral 800 600 Other: Voiding Method Toilet Toilet # Voids 2 1 # Bowel Movements 0 - Exam GENERAL EXAM: Alert, active, alert 64-year-old female patient, on room air, comfortable in no apparent distress. HEAD: Normocephalic. EYES: Normal reaction of pupils, equal size. NOSE: Clear with pink turbinates. THROAT: No erythema or exudates. NECK: No masses, no JVD. CHEST: No chest wall deformity. LUNGS: Equal air entry with few scattered rhonchi more so on the right lung, end expiratory wheeze. CVS: S1 and S2 normal with no audible murmur, regular rhythm. ABDOMEN: No hepatosplenomegaly, normal bowel sounds, no guarding or rigidity. SPINE: No scoliosis or deformity SKIN: No rashes CENTRAL NERVOUS SYSTEM: No focal deficits, tone is normal in all 4 extremities. EXTREMITIES: There is no peripheral edema. No clubbing, no cyanosis. Peripheral pulses are intact. - Labs CBC & Chem 7: 11/14/19 07:12 11/14/19 07:12 Labs: Abnormal Lab Results - Last 24 Hours (Table) 11/13/19 11/13/19 11/13/19 Range/Units 13:30 16:57 20:39 Metamyelocytes # (Man) (0) k/uL Myelocytes # (Manual) (0) k/uL Sodium (137-145) mmol/L BUN (7-17) mg/dL Glucose (74-99) mg/dL POC Glucose (mg/dL) 137 H 272 H 152 H (75-99) mg/dL 11/14/19 11/14/19 11/14/19 Range/Units 07:12 07:12 07:13 Metamyelocytes # (Man) 0.70 H (0) k/uL Myelocytes # (Manual) 0.10 H (0) k/uL Sodium 135 L (137-145) mmol/L BUN 20 H (7-17) mg/dL Glucose 337 H (74-99) mg/dL POC Glucose (mg/dL) 323 H (75-99) mg/dL 11/14/19 Range/Units 11:52 Metamyelocytes # (Man) (0) k/uL Myelocytes # (Manual) (0) k/uL Sodium (137-145) mmol/L BUN (7-17) mg/dL Glucose (74-99) mg/dL POC Glucose (mg/dL) 247 H (75-99) mg/dL Microbiology - Last 24 Hours (Table) 11/11/19 00:50 Blood Culture - Preliminary Blood No Growth after 72 hours Assessment and Plan Assessment: 1 acute pneumonia secondary influenza A. The patient presents with a right middle lobe/right lower lobe pneumonia 2 acute hypoxic respiratory failure secondary to above is improved, nevertheless the patient is still having some limited bronchospasm wheezing 3 Hypertension 4 hyperlipidemia 5 hypothyroidism 6 Raynaud's disease Plan The patient was seen and evaluated by Dr. Buckley. She is improved today compared to yesterday. Not quite back to her baseline. Follow-up chest x-ray revealed near complete resolution the right basilar opacity. Some left basilar atelectasis. Continue her current medications. Increase activity as tolerated. We'll continue to follow. Probable discharge in the a.m. I, the cosigning physician, performed a history & physical examination of the patient. Lungs sounds few scattered rhonchi more so on the right lung, end expiratory wheeze. Maintaining good O2 saturations in the 90s on room air. I discussed the assessment and plan of care with my nurse practitioner, Kacie Jin. I attest to the above note as dictated by her.
[2019-11-14 17:10] LABS: Glucose,Whole Blood 328 mg/dL (75-99)
[2019-11-14] MEDS: LATANOPROST 0.005% OPHTH DROPS 2.5 ML BTL BOTH EYES SCH (20:58)
[2019-11-14 21:07] LABS: Glucose,Whole Blood 245 mg/dL (75-99)
[2019-11-14 22:10] VITALS: RESP 22
--- NOTE | 2019-11-14 22:19 | PN ---
PROGRESS NOTE DATE OF SERVICE: 11/14/2019 This 64-year-old woman who was admitted with significant pneumonia as well as influenza and bronchospasm is being closely monitored. No chest pain or palpitations. No fever. The most recent chest x-ray, which was personally reviewed by me, showed improving right basal opacity. No chest pain or palpitations. No fever. PHYSICAL EXAMINATION: Patient is alert, oriented x3. Pulse 98, blood pressure 122/82, respiration 16, temperature 97.6, pulse ox 92% on room air. HEENT: Conjunctivae normal. Oral mucosa moist. NECK: No jugular venous distention. No carotid bruit. No lymph node enlargement. CARDIOVASCULAR: S1, S2 muffled. RESPIRATORY: Diminished breath sounds at the bases. Scattered rhonchi and crackles. ABDOMEN: Soft, nontender. LEGS: No edema, no swelling. NERVOUS SYSTEM: No focal deficits. LAB STUDIES: CBC within normal limits. Sodium 135. Glucose 323 and 247. ASSESSMENT: 1. Acute right middle lobe pneumonia, possibly Gram-negative pneumonia with Staph pneumonia, possibly secondary to influenza. 2. Acute bronchospasm with acute bronchitis with severe acute hypoxic respiratory failure, present on admission. 3. Diabetes mellitus, type 2, uncontrolled with hyperglycemia; sugars more than 400. 4. Fibromyalgia. 5. Hypertension. 6. Hyperlipidemia. 7. History of Raynaud's. 8. History of vertigo. 9. Cholecystectomy. 10.FULL CODE. RECOMMENDATIONS AND DISCUSSION: I recommend to continue current medications, continue with symptomatic treatment, continue with antibiotics, continue with anti-virals. Monitor blood sugars closely. Otherwise, closely follow with Pulmonary. Guarded prognosis. Increase ambulation. Further recommendations to follow. Possible discharge in the next 24 to 48 hours. MMODL / IJN: [id number] /
[2019-11-15] MEDS: AZITHROMYCIN 500 MG TAB PO SCH (00:02)
[2019-11-15] MEDS: LEVOTHYROXINE 50 MCG TAB PO SCH (05:21)
[2019-11-15 06:28] VITALS: BP 160/84; TEMP 98.3
[2019-11-15 07:20] LABS: Glucose,Whole Blood 249 mg/dL (75-99)
[2019-11-15] MEDS: IPRATROPIUM-ALBUTEROL 3 ML NEB INHALATION SCH ×2 (07:43→11:21)
[2019-11-15] MEDS: PANTOPRAZOLE 40 MG TABLET PO SCH (08:10)
[2019-11-15] MEDS: MULTIVITAMINS, THERA 1 EACH TAB PO SCH (08:10)
[2019-11-15] MEDS: GLIMEPIRIDE 1 MG TAB PO SCH (08:10)
[2019-11-15] MEDS: OSELTAMIVIR 75 MG CAP PO SCH (08:10)
[2019-11-15] MEDS: metFORMIN 500 MG TAB PO SCH (08:10)
[2019-11-15] MEDS: methylPREDNISolone SOD SUCCI 40 MG/ML 1 ML VIAL IV SCH (08:11)
[2019-11-15] MEDS: INSULIN ASPART (NovoLOG) 100 UNIT/ML VIAL SQ SCH ×4 (08:11→12:17)
[2019-11-15] MEDS: HEPARIN SODIUM,PORCINE 5,000 UNIT/ML 1 ML VIAL SQ SCH (08:11)
[2019-11-15 11:38] VITALS: PULSE 96
--- NOTE | 2019-11-15 11:40 | P.PN ---
Subjective Progress Note Date: 11/15/19 64-year-old female patient was transferred from [place] because of pneumonia. She was apparently found to have influenza a the chest x-ray shows a right lower lobe pneumonia. The patient was seen in consultation yesterday by my partner. He has history of diabetes mellitus and hypothyroidism and fi bromyalgia and hypertension and she suffers from Raynaud's disease. For now, the patient is on a combination of Rocephin and Zithromax and the patient is also on Tamiflu orally. She is also on DuoNeb nebulized treatments around the clock. Clinically she is getting the same. She remains bronchus spastic and wheezy somewhat unchanged compared to yesterday. Blood sugars are slightly elevated today to use of systemic steroids. No chest pain. No history of bronchial asthma. Most of COPD. 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 She is currently resting quite comfortably in bed. Feeling better each day. Up to the shower. She still has a loose nonproductive cough. She's afebrile. Maintaining O2 saturations 97% on room air. Hemodynamically stable. Blood culture reveals no growth. White count 11.8. Hemoglobin 11.8. Creatinine 0.75. He is continued on DuoNeb inhalations, ceftriaxone and azithro mycin, IV Solu-Medrol and Tamiflu. She is requiring an insulin drip at 5 units per hour. Follow-up chest x-ray pending. The patient is seen today 11/14/2019 in follow-up on the regular medical floor. She is awake and alert in no acute distress. She's been up ambulating in her room. She still has some dyspnea on exertion. Still loose nonproductive cough today. Some wheezing. She is maintaining good O2 saturations on room air. She's been afebrile. Blood culture reveals no growth to date. White count 10.0. Hemoglobin 11.4. Sodium 135. Potassium 4.9. Creatinine 0.82. Chest x- ray shows near complete resolution of the right basilar opacity. Some new platelike atelectasis in the left base. On 11/15/2019 the patient is feeling better. Less bronchospastic and wheezy and short of breath compared to yesterday. She is afebrile. No new complaints for now. She is completing course of Rocephin and Zithromax she is also on Tamiflu. Cultures of been negative. No fever or chills. She has some limited cough and congestion and she is still feeling fatigued. She is on IV Solu-Medrol. Objective - Vital Signs Vital signs: Vital Signs Temp 98.3 F 11/15/19 06:27 Pulse 92 11/15/19 11:22 Resp 22 11/15/19 08:00 BP 160/84 11/15/19 06:27 Pulse Ox 95 11/15/19 07:45 Intake & Output 11/14/19 11/15/19 11/15/19 18:59 06:59 18:59 Other: Voiding Method Toilet Toilet # Voids 2 1 1 - Exam GENERAL EXAM: Alert, active, alert 64-year-old female patient, on room air, comfortable in no apparent distress. HEAD: Normocephalic. EYES: Normal reaction of pupils, equal size. NOSE: Clear with pink turbinates. THROAT: No erythema or exudates. NECK: No masses, no JVD. CHEST: No chest wall deformity. LUNGS: Equal air entry with few scattered rhonchi more so on the right lung, end expiratory wheeze. Overall wheezing and bronchospasm improved on today's evaluation. CVS: S1 and S2 normal with no audible murmur, regular rhythm. ABDOMEN: No hepatosplenomegaly, normal bowel sounds, no guarding or rigidity. SPINE: No scoliosis or deformity SKIN: No rashes CENTRAL NERVOUS SYSTEM: No focal deficits, tone is normal in all 4 extremities. EXTREMITIES: There is no peripheral edema. No clubbing, no cyanosis. Peripheral pulses are intact. - Labs CBC & Chem 7: 11/14/19 07:12 11/14/19 07:12 Labs: Abnormal Lab Results - Last 24 Hours (Table) 11/14/19 11/14/19 11/14/19 Range/Units 07:12 11:52 17:09 Metamyelocytes # (Man) 0.70 H (0) k/uL Myelocytes # (Manual) 0.10 H (0) k/uL POC Glucose (mg/dL) 247 H 328 H (75-99) mg/dL 11/14/19 11/15/19 Range/Units 21:06 07:15 Metamyelocytes # (Man) (0) k/uL Myelocytes # (Manual) (0) k/uL POC Glucose (mg/dL) 245 H 249 H (75-99) mg/dL Microbiology - Last 24 Hours (Table) 11/11/19 00:50 Blood Culture - Preliminary Blood No Growth after 96 hours Assessment and Plan Plan: 1 acute pneumonia secondary influenza A. The patient presents with a right middle lobe/right lower lobe pneumonia, clinically improved 2 acute hypoxic respiratory failure secondary to above is improved, nevertheless the patient is still having some limited bronchospasm wheezing, clinically improved 3 Hypertension 4 hyperlipidemia 5 hypothyroidism 6 Raynaud's disease Plan Clinically improved Complete a course of Tamiflu Complete course of Ceftin and Zithromax Prednisone burst taper Discharge home today and the patient is to follow pulmonary standpoint to be followed up on outpatient basis.
[2019-11-15 12:05] LABS: Glucose,Whole Blood 217 mg/dL (75-99)
--- NOTE | 2019-11-16 07:30 | DS ---
DISCHARGE SUMMARY DATE OF SERVICE: 11/15/2019 FINAL DIAGNOSES: 1. Acute right middle lobe pneumonia, possibly gram-negative pneumonia with Staph pneumonia possibly secondary to influenza. 2. Acute bronchospasm with acute bronchitis with severe acute hypoxic respiratory failure, present on admission, improved. 3. Diabetes mellitus type 2, uncontrolled with hyperglycemia, sugars more than 400. 4. Fibromyalgia. 5. Hypertension. 6. Hyperlipidemia. 7. History of Raynaud. 8. History of vertigo. 9. History of cholecystectomy. 10.FULL CODE. DISCHARGE DISPOSITION: The patient will be discharged in a stable condition with guarded prognosis. HISTORY OF PRESENT ILLNESS: This 64-year-old woman with a past medical history of multiple medical problems, will be followed Dr. Ashley Loo in the outpatient setting, admitted with shortness of breath and pneumonia and influenza. Patient was treated symptomatically. Patient improved significantly. Dr. Shepherd and Dr. Buckley saw the patient. The cough was also increasing significantly. On exam, vitals are stable. CARDIOVASCULAR: S1, S2. RESPIRATORY: A few scattered rhonchi. ABDOMEN: Soft. NERVOUS SYSTEM: No focal deficits. DISCHARGE ADVICE: The patient will be discharged in stable condition with guarded prognosis. I would recommend the patient to follow up closely with primary physician and as well as Dr. Buckley. Discharge diet is cardiac diet. Activity limited until followup. Follow up with Dr. Buckley as recommended. Follow up with Dr. Ashley Loo as recommended. MEDICATION: 1. Amaryl 1 mg p.o. daily. 2. FiberCon 1.25 g p.o. daily p.r.n. 3. Glucophage 1000 mg p.o. b.i.d. 4. Mobic 15 mg p.o. daily. 5. Synthroid 50 mcg daily. 6. Trulicity 1.5 subcu Tuesday. 7. Xalatan 1 drop both eyes q.h.s. 8. Ceftin 500 mg p.o. b.i.d. for 3 days. 9. Multivitamin 1 p.o. daily. 10.Prednisone taper 40 mg for 3 days, 30 for 3 days, 20 for 3 days 10 for 3 days. 11.Albuterol 2 puffs q.6 p.r.n. 12.Tylenol 750 mg p.o. b.i.d. for 2 more days. 13.Zithromax 500 mg p.o. daily. Once again, the patient will be discharged in stable condition with guarded prognosis. MMTRANG / LEAHN: [id number] /
== END 2019-11-15 13:05 | disposition home or self-care (01) | DRG 177 ==
LOC: EC 22:34 → 6NMEDSUR 11-11 00:12
PROVIDERS: ADMIT Internal Medicine; ATTEND Internal Medicine
DX: J10.08 Influenza due to other identified influenza virus with other specified pneumonia (principal); J96.01 Acute respiratory failure with hypoxia; J15.29 Pneumonia due to other staphylococcus; J98.11 Atelectasis; J20.9 Acute bronchitis, unspecified; E11.65 Type 2 diabetes mellitus with hyperglycemia; M79.7 Fibromyalgia; I10 Essential (primary) hypertension; E03.9 Hypothyroidism, unspecified; E78.5 Hyperlipidemia, unspecified; I73.00 Raynaud's syndrome without gangrene; E86.0 Dehydration; R04.0 Epistaxis; R19.7 Diarrhea, unspecified; Z79.1 Long term (current) use of non-steroidal anti-inflammatories (NSAID); Z79.84 Long term (current) use of oral hypoglycemic drugs; Z79.890 Hormone replacement therapy; Z79.899 Other long term (current) drug therapy; Z90.49 Acquired absence of other specified parts of digestive tract; Z88.6 Allergy status to analgesic agent; Z88.8 Allergy status to other drugs, medicaments and biological substances
CPT/HCPCS: 71045; 80048; 85025; 87040; 94640; 94760; 99285